=== PATIENT | male | born 1955 | race Caucasian/White ===

== ENCOUNTER 2018-06-07 05:16 | Day surgery (SDC) | payer BC, OTHER ==
[2018-06-06 11:16] VITALS: BMI 30.9
[~2018-06-07 05:16] MED LIST: BUPIVACAINE HCL/PF 0.25% (2.5MG/ML) 10 ML VIAL IJ ONE; ceFAZolin SODIUM 1 GM VIAL IVPB ONE
--- NOTE | 2018-06-07 08:08 | HP ---
[facility]ellite [facility] - Chief Complaint Chief Complaint: right knee pain - Past Medical History Allergies/Adverse Reactions: Allergies Allergy/AdvReac Type Severity Reaction Status Date / Time No Known Allergies Allergy Unverified 05/15/14 11:57 - Current Medications Current Medications: Home Medications Medication Instructions Recorded Amlodipine Besylate [Norvasc -] 10 mg PO DAILY 05/15/14 Losartan Potassium 100 mg PO DAILY 05/15/14 Tamsulosin HCl [Flomax -] 0.4 mg PO HS 07/15/15 Hydrochlorothiazide [Hctz -] 12.5 mg PO BID 07/16/15 Satellite Physical Exam - Physical Examination General Appearance: Well Nourished, Well Developed, Alert & Oriented x3 ENT: Clear Lung: Normal air movement Heart: Regular rate & rhythm Extremities: Other (right knee- + swelling, + ttp ,decr rom, + mcmurrays, nvi MRI + lmt, djd) Neurological: Intact, Alert, Oriented Satellite Impression/Plan - Impression/Plan Impression: right knee internal derangement Operative Procedure: right knee arthroscopy Date to be Performed: 06/07/18
[2018-06-07] MEDS ORDERED: ACETAMINOPHEN INJECTION 100 ML IVPB ONE (09:17)
[2018-06-07] MEDS ORDERED: DESFLURANE GAS 240 ML BOTTLE IH ONE (09:20)
[2018-06-07] MEDS ORDERED: BUPIVACAINE HCL/PF 0.25% (2.5MG/ML) 10 ML VIAL ONE (09:20)
[2018-06-07] MEDS ORDERED: PROPOFOL 20 ML ONE ×2 (09:24)
[2018-06-07] MEDS ORDERED: MIDAZOLAM HCL 2 MG/2 ML SINGLE DOSE VIAL ONE ×2 (09:25)
[2018-06-07] MEDS ORDERED: SUCCINYLCHOLINE CHLORIDE 200 MG/10 ML VIAL ONE (09:25)
[2018-06-07] MEDS ORDERED: ceFAZolin SODIUM 1 GM VIAL IVPB ONE (10:21)
[2018-06-07] MEDS ORDERED: BUPIVACAINE HCL/PF 0.25% (2.5MG/ML) 10 ML VIAL IJ ONE (10:55)
--- NOTE | 2018-06-07 11:10 | OP ---
Operative Note - Note: Operative Date: 06/07/18 Pre-Operative Diagnosis: right knee pain, MM tear, OA Operation: right knee arthroscopy, partial medial and lateral meniscectomy, partial synovectomy Findings: OA, synovitis, MM and LM tear Post-Operative Diagnosis: Same as Pre-op Surgeon: Gus Rivers Anesthesiologist/RN CVOR: Cameron Greer Anesthesia: General, Local Specimens Removed: shavings Estimated Blood Loss (mls): 0 Drains, Volume Out (mls): 0 Blood Volume Replaced (mls): 0 Fluid Volume Replaced (mls): 500 Operative Report Dictated: Yes
[2018-06-07] MEDS ORDERED: LACTATED RINGERS SOLUTION 1,000 ML IV SCH (11:15)
[2018-06-07] MEDS ORDERED: ONDANSETRON 4 MG/2 ML VIAL IVPUSH PRN (11:15)
[2018-06-07] MEDS ORDERED: PROMETHAZINE HCL 25 MG/1 ML VIAL IVPUSH PRN (11:15)
[2018-06-07] MEDS ORDERED: oxyCODONE HCL 5 MG TABLET PO PRN ×2 (11:15)
--- NOTE | 2018-06-07 12:09 | OP ---
DATE OF OPERATION: 06/07/2018 PREOPERATIVE DIAGNOSIS: Right knee medial meniscus tear and osteoarthritis. POSTOPERATIVE DIAGNOSIS: Right knee medial meniscus tear and osteoarthritis, lateral meniscus tear, synovitis. PROCEDURE: Right knee arthroscopy, partial medial and lateral meniscectomy, and arthroscopic synovectomy. SURGEON: Lucille Duffy MD JEWELRY FINISHER: None. ANESTHESIOLOGIST: Cameron Greer MD ANESTHESIA: LMA anesthesia. DRAINS: None. COMPLICATIONS: None. BLOOD LOSS: None. BLOOD GIVEN: None. FLUID REPLACEMENT: 500 mL. INDICATION: This patient is a 63-year-old male with preoperative diagnosis of right knee pain, [id number] osteoarthritis, and medial meniscus tear. Patient understands the potential risk, complications, alternatives, and benefits of surgical versus nonsurgical treatment. The patient elected to undergo this procedure. DESCRIPTION OF PROCEDURE: The patient was brought into the operating room, peripheral IV placed and IV sedation given. Two g of IV Ancef were given. LMA anesthesia was induced. Ampule Webril was placed on the right thigh. The tourniquet was applied. The Styrofoam ring was applied. The C-clamp leg plascencia was applied with ampule padding throughout. The right lower extremity was prepped and draped in a sterile fashion, elevated, and exsanguinated with Esmarch bandage, and tourniquet inflated to 275 mmHg. A superior medial outflow was established. The arthroscope was introduced into the joint. A medial portal was established. Under direct visualization using a spinal needle, diagnostic arthroscopy was performed. The patient had a tear of the posterior horn of the medial meniscus that was a degenerative type and frayed. It was debrided with the upbiting and the right biting forceps and the curved shaver. The anterior horn and body of the medial meniscus were good. There was only grade 1 osteoarthritic changes in the medial compartment. There was a lot of synovitis in the notch and the anterior compartment. This was removed. There was also a lot of synovitis laterally. This was removed. Once I did the partial synovectomy in the lateral compartment, I could better visualize the lateral compartment and saw that the patient had significant areas of grade 4 changes of osteoarthritis on the lateral tibial plateau, grade 1 changes in the lateral femoral condyle, and the patient had a completely torn, completely disrupted, and displaced tear of the body and anterior horn of the lateral meniscus. This was debrided with the basket forceps and the curved shaver. All the hoop fibers had been disrupted by the tear. Photographs were taken before and after. Additional synovectomy was performed in this area. I put the knee through a range of motion. A portion of posterior horn was left intact. Next, our attention was turned to the patellofemoral joint. There was also a lot of synovitis here. This was removed. Patient had relatively small areas of grade 3 changes in the femoral trochlea and grade 2 changes on the surface of the patella. The area was gently debrided. The area was copiously irrigated and washed out. All instrumentation and debris were removed. Excess saline was removed. The arthroscopy portal was closed with 3-0 nylon sutures. The area was then covered with Xeroform gauze. Twenty mL of 0.5% Marcaine was introduced into the joint. It was then covered with Xeroform, 4 x 4's, Webril, and an Akhil bandage. Tourniquet was taken down after a total tourniquet time of 20 minutes. LUCILLE DUFFY M.D. [id number]
[2018-06-07] MEDS ORDERED: oxyCODONE HCL 5 MG TABLET PO ONE (13:50)
[2018-06-07 14:05] VITALS: TEMP 97.8
[2018-06-07 15:02] VITALS: BP 143/94; PULSE 64
--- NOTE | 2018-06-08 16:14 | PATH ---
Surgical Pathology Report Patient Name: PRISCILLA CHAMBERS [facility]. Rec. #: [id number] /Age/Gender: 1955 (Age: 63) / M Account: [id number] Location: [facility] Taken: 06/07/2018 Received: 06/07/2018 Reported: 06/08/2018 Physicians: Gus Rivers M.D. Specimen(s) Received RIGHT KNEE SHAVINGS Clinical History Internal derangement right knee Final Diagnosis KNEE SHAVINGS, RIGHT, ARTHROSCOPY, PARTIAL MENISCECTOMY, LATERAL MENISCECTOMY, AND SYNOVECTOMY: FRAGMENTS OF CARTILAGE, DENSE FIBROCONNECTIVE TISSUE, ADIPOSE TISSUE, AND REACTIVE SYNOVIUM. RARE NODULAR CALCIFIC AGGREGATES CONSISTENT WITH CHONDROCALCINOSIS PRESENT. Electronically Signed Nirali Grier M.D. Gross Description Received in formalin, labeled "right knee shavings," is a 6.5 x 6.0 x 1.0 cm. aggregate of martinez-yellow soft tissue fragments. A sales solutions representative portion is submitted in one cassette. /06/07/2018 [facility]/07/2018
== END 2018-06-07 15:23 | disposition home or self-care (01) ==
LOC: JASU-SURG 05:16
PROVIDERS: ATTEND Orthopaedic Surgery
PROC: 0SBC4ZZ Excision of Right Knee Joint, Percutaneous Endoscopic Approach (ICD-10-PCS; 2018-06-07)
PROC: 0SBC4ZZ Excision of Right Knee Joint, Percutaneous Endoscopic Approach (ICD-10-PCS; 2018-06-07)
PROC: 0SBC4ZZ Excision of Right Knee Joint, Percutaneous Endoscopic Approach (ICD-10-PCS; principal; 2018-06-07 09:30)
DX: S83.281A Other tear of lateral meniscus, current injury, right knee, initial encounter (principal); S83.241A Other tear of medial meniscus, current injury, right knee, initial encounter; M17.11 Unilateral primary osteoarthritis, right knee; M65.861 Other synovitis and tenosynovitis, right lower leg; X58.XXXA Exposure to other specified factors, initial encounter; Y93.9 Activity, unspecified; Y92.9 Unspecified place or not applicable; Y99.9 Unspecified external cause status
CPT/HCPCS: 88304-TC; 94760; 97116-GP; J0131

== ENCOUNTER 2021-09-07 05:16 | Day surgery (SDC) | payer BC, OTHER ==
[2021-09-06 09:00] VITALS: BMI 30.7
[2021-09-07 08:29] VITALS: TEMP 97.3
[2021-09-07 09:06] VITALS: BP 103/51; PULSE 60
== END 2021-09-07 09:26 | disposition home or self-care (01) ==
LOC: JASU-ENDO 05:16
PROVIDERS: ATTEND Internal Medicine Gastroenterology
PROC: 0DJD8ZZ Inspection of Lower Intestinal Tract, Via Natural or Artificial Opening Endoscopic (ICD-10-PCS; principal; 2021-09-07 08:00)
DX: Z12.11 Encounter for screening for malignant neoplasm of colon (principal); Z86.010 Personal history of colon polyps; K64.8 Other hemorrhoids

== ENCOUNTER 2023-11-23 04:09 | Day surgery (SDC) | payer OTHER ==
[2023-11-23 07:36] VITALS: BMI 30.2
[2023-11-23 09:11] VITALS: TEMP 97.8
[2023-11-23 09:20] VITALS: RESP 18
[2023-11-23 09:43] VITALS: BP 115/76; PULSE 64
== END 2023-11-23 10:00 | disposition home or self-care (01) ==
LOC: JASU-ENDO 04:09
PROVIDERS: ATTEND Internal Medicine Gastroenterology
PROC: 0DB78ZX Excision of Stomach, Pylorus, Via Natural or Artificial Opening Endoscopic, Diagnostic (ICD-10-PCS; 2023-11-23)
PROC: 0DB68ZX Excision of Stomach, Via Natural or Artificial Opening Endoscopic, Diagnostic (ICD-10-PCS; principal; 2023-11-23 08:30)
DX: K29.50 Unspecified chronic gastritis without bleeding (principal); K31.A11 Gastric intestinal metaplasia without dysplasia, involving the antrum
CPT/HCPCS: 82962; 88305-TC; 88342-TC

== ENCOUNTER 2023-12-14 05:08 | Day surgery (SDC) | payer OTHER ==
[2023-12-12 09:25] VITALS: BMI 29.2
[2023-12-14 08:42] VITALS: TEMP 97.3
[2023-12-14 09:18] VITALS: PULSE 59
[2023-12-14 09:20] VITALS: BP 96/66; RESP 17
== END 2023-12-14 09:21 | disposition home or self-care (01) ==
LOC: JASU-ENDO 05:08
PROVIDERS: ATTEND Internal Medicine Gastroenterology
PROC: 0DBL8ZX Excision of Transverse Colon, Via Natural or Artificial Opening Endoscopic, Diagnostic (ICD-10-PCS; 2023-12-14)
PROC: 0DBM8ZX Excision of Descending Colon, Via Natural or Artificial Opening Endoscopic, Diagnostic (ICD-10-PCS; 2023-12-14)
PROC: 0DBK8ZX Excision of Ascending Colon, Via Natural or Artificial Opening Endoscopic, Diagnostic (ICD-10-PCS; principal; 2023-12-14 08:00)
DX: Z12.11 Encounter for screening for malignant neoplasm of colon (principal); D12.4 Benign neoplasm of descending colon; D12.3 Benign neoplasm of transverse colon; D12.2 Benign neoplasm of ascending colon; K64.8 Other hemorrhoids; Z86.010 Personal history of colon polyps
CPT/HCPCS: 82962; 88305-TC